=== PATIENT | male | born 1955 | race Caucasian/White ===

== ENCOUNTER 2022-05-26 18:25 | Outpatient (CLI) | payer BC, SELFPAY ==
[2022-05-26 19:02] LABS: SARS PCR* Negative SARS-CoV-2 (Negative)
== END 2022-05-26 18:26 | disposition home or self-care (01) ==
LOC: LKVREF 18:26
PROVIDERS: PCP Physician Assistant Medical; Visit Provider Physician Assistant Medical
DX: Z20.822 Contact with and (suspected) exposure to COVID-19 (principal)
CPT/HCPCS: 87635

== ENCOUNTER 2022-05-29 21:02 | Outpatient (CLI) | payer BC, SELFPAY ==
--- NOTE | 2022-06-13 12:29 | P.SLS_ITS ---
Sleep Study Details Details Interpreting Provider: Martin Casper MD Date of Sleep Study: 05/29/22 Sleep Study Details: STUDY TYPE:? Attended polysomnogram with CPAP ? BMI:? 32.1 ORDERING PROVIDER:? hernandez INDICATION:? Concerns about sleep apnea ? SLEEP SUMMARY:? Sleep time 329 minutes, efficiency 71.3%, latency 23 minutes. Arousal index 22.4 RESPIRATORY SUMMARY:? Mean oxygen awake 95, asleep 92, minimum 82, 11.6 minutes oxygen between 80 and 88%. AHI is 59.7, RDI 63.8. No REM stage sleep was seen in the diagnostic portion of the study. Note that the entire study was done in the nonsupine position. CPAP titration was performed the patient was titrated to a pressure of 7 which decreased AHI to 5.5. At pressures of 5 and 6 REM stage sleep was seen in the nonsupine position. This would be considered a successful titration in the nonsupine position. PERIODIC LIMB MOVEMENTS OF SLEEP:? Pretreatment index 0, post treatment index 3.1, index with arousal post treatment 0 CARDIAC:? Awake 66, asleep 62. No arrhythmias noted IMPRESSION:? Severe obstructive sleep apnea with successful CPAP titration to a pressure of 7 in the non supine position RECOMMENDATION: Initiate AutoSet CPAP at a pressure of 4-15 with close follow- up.
== END 2022-05-29 21:03 | disposition home or self-care (01) ==
PROVIDERS: PCP Physician Assistant Medical; Visit Provider Physician Assistant Medical
DX: G47.33 Obstructive sleep apnea (adult) (pediatric) (principal)
CPT/HCPCS: 95811

== ENCOUNTER 2022-08-04 09:26 | Outpatient (CLI) | payer BC, SELFPAY ==
[2022-08-04 12:57] LABS: Albumin* 4.4 g/dL (3.3-5.0); Chloride* 101 mmol/L (96-114)
[2022-08-04 12:58] LABS: Potassium* 4.8 mmol/L (3.6-5.1); Sodium* 137 mmol/L (135-149)
[2022-08-04 13:00] LABS: Bilirubin Total* 0.3 mg/dL (0.1-1.5); Carbon Dioxide* 27 mmol/L (20-32); Cholesterol* 156 mg/dL (90-199); Creatinine* 0.8 mg/dL (0.5-1.5); Estimated Glomerular Filt Rate 99 ml/min; Total Protein* 7.1 g/dL (6.0-8.3)
[2022-08-04 13:01] LABS: Alanine Aminotransferase* 20 U/L (4-50); Alkaline Phosphatase* 96 U/L (40-150); Aspartate Amino Transferase* 22 U/L (12-35); Blood Urea Nitrogen* 19 mg/dL (7-30); Calcium* 9.9 mg/dL (8.4-10.6); Glucose* 133 mg/dL (60-115); HDL Cholesterol* 45 mg/dL (>=40); LDL Cholesterol Calculated 87 mg/dL (<100); Triglycerides* 121 mg/dL (40-149)
[2022-08-04 13:33] LABS: PSA Screen* 0.96 ng/mL (0.10-4.00)
== END 2022-08-04 09:27 | disposition home or self-care (01) ==
PROVIDERS: PCP Physician Assistant Medical; Visit Provider Physician Assistant Medical
DX: E11.9 Type 2 diabetes mellitus without complications (principal); E78.5 Hyperlipidemia, unspecified; Z12.5 Encounter for screening for malignant neoplasm of prostate
CPT/HCPCS: 80053; 80061; 84153

== ENCOUNTER 2023-10-05 15:22 | Outpatient (CLI) | payer BC, SELFPAY | END 2023-10-05 15:23 | disposition home or self-care (01) | LOC: FRMREF 15:22 | PROVIDERS: PCP Physician Assistant Medical; Visit Provider Physician Assistant Medical | DX: Z00.00 Encounter for general adult medical examination without abnormal findings (principal); E78.5 Hyperlipidemia, unspecified; E11.9 Type 2 diabetes mellitus without complications; Z12.5 Encounter for screening for malignant neoplasm of prostate | CPT/HCPCS: 80053; 80061; 82043; 82570; 84153 ==

== ENCOUNTER 2024-11-13 16:00 | Outpatient (CLI) | payer BC, SELFPAY | END 2024-11-13 16:01 | disposition home or self-care (01) | LOC: NFLDREF 11-23 10:39 | PROVIDERS: PCP Physician Assistant Medical; Referring Provider Physician Assistant Medical; Visit Provider Physician Assistant Medical | DX: E78.2 Mixed hyperlipidemia (principal); E11.65 Type 2 diabetes mellitus with hyperglycemia; Z79.84 Long term (current) use of oral hypoglycemic drugs; Z12.5 Encounter for screening for malignant neoplasm of prostate | CPT/HCPCS: 80053; 80061; 82043; 82570; G0103 ==